=== PATIENT | male | born 1960 | race Caucasian/White ===

== ENCOUNTER → 2020-08-20 16:11 | Outpatient (BNVA) | payer OTHER, SELFPAY | PROVIDERS: PCP Internal Medicine; Visit Provider Urology | DX: Z76.89 Persons encountering health services in other specified circumstances (principal) ==

== ENCOUNTER → 2021-09-03 09:17 | Outpatient (BNVA) | payer OTHER, SELFPAY | PROVIDERS: PCP Physician Assistant Medical; Visit Provider Urology | DX: N40.1 Benign prostatic hyperplasia with lower urinary tract symptoms (principal); N13.8 Other obstructive and reflux uropathy; N52.9 Male erectile dysfunction, unspecified | CPT/HCPCS: 51798; 99212 ==

== ENCOUNTER 2022-09-03 10:26 | Outpatient (REF) | payer OTHER, SELFPAY ==
[2022-09-03 16:40] LABS: Urine Cytology See Pathology rpt
== END 2022-09-03 10:27 | disposition home or self-care (01) ==
LOC: HO.LAB 10:26
PROVIDERS: PCP Physician Assistant Medical; Visit Provider Urology
DX: R31.29 Other microscopic hematuria (principal); N52.9 Male erectile dysfunction, unspecified; N40.1 Benign prostatic hyperplasia with lower urinary tract symptoms; N13.8 Other obstructive and reflux uropathy
CPT/HCPCS: 88112; 99212

== ENCOUNTER → 2022-12-02 09:16 | Outpatient (BNVA) | payer OTHER, SELFPAY | PROVIDERS: PCP Physician Assistant Medical; Visit Provider Urology ==

== ENCOUNTER → 2023-06-10 10:27 | Outpatient (BNVA) | payer OTHER, SELFPAY | PROVIDERS: Visit Provider Urology ==

== ENCOUNTER 2024-01-12 08:31 | Outpatient (AMB) | payer OTHER, SELFPAY ==
--- NOTE | 2024-01-12 08:37 | A.OFFVIS_ITS ---
Intake Visit Reasons: Follow up/PVR Intake Note: Patient is Present for PVR/ Urology Med: Patient is no longer taking Tamsulosin, Tadalafil Antibiotic Allergy:None Blood Thinner: None Todays PVR:20 Allergies No Known Allergies Allergy (Verified 01/12/24 08:40) Medication List - Last Reconciled 01/12/24 by Dante Logan MD allopurinol 100 mg PO DAILY celecoxib (Celebrex) 200 mg PO DAILY clonazepam 0.5 mg PO DAILY clonazepam 0 mg PO esomeprazole magnesium (Nexium) 20 mg PO DAILY lisinopril 30 mg PO DAILY metformin 500 mg PO QAM pantoprazole 40 mg PO DAILY rosuvastatin 20 mg PO DAILY sennosides (senna) 17.2 mg PO BID tadalafil 20 mg PO ONCE PRN 30 days tadalafil 5 mg PO DAILY 90 days tamsulosin 0.4 mg PO BEDTIME 90 days HPI Comments Details: Mr Gillespie is a very pleasant male. He is a patient of Dr. Crowley. He is seen for following urologic conditions - lower urinary tract symptoms - erectile dysfunction Has progression of lower urinary tract symptoms Low PSA Starting alfuzosin Add back daily tadalafil with on demand tadalafil Plan bladder ultrasound and check cystoscopy late April Is going to [facility] for a few months As a place near [place] Lower Urinary Tract Symptoms: Current visit is for further evaluation of, lower urinary tract symptoms, predominate obstructive symptoms Current treatment includes medication, - daily tadalafil Prostate Symptom Score Mild (0-8), Bother 3. Symptoms include 01/08 incomplete emptying, weak stream, straining, and are progressing 08/11 , weak stream, nocturia (>2), and are stable 08/12 , incomplete emptying, weak stream Prior Prostate Score moderate. PSA 07/09 0.7, 07/11 0.8. 07/15 0.8 Prostate volume 30-50gm Testing at next visit will include uroflow, bladder scan. Treatment plan continue with current medications. Erectile dysfunction: In setting of diabetes Progressive Diabetic with statin management Responds to oral medications Daily tadalafil with on demand medication prescription provided [facility] Medical History Gout Hyperlipidemia HTN (hypertension) Chronic pain syndrome Anxiety Obesity Benign prostatic hyperplasia without lower urinary tract symptoms Erectile dysfunction due to arterial insufficiency Excessive urination at night Other microscopic hematuria Erectile dysfunction Surgical History History of total right knee replacement History of colonoscopy Review of Systems Const Denies chills and Denies fever(s) Card Reports no additional complaints and Denies syncope Resp Denies cough GI Denies abdominal pain and Denies heartburn Reports as per HPI and Denies change in libido Neuro Denies syncope Psych Denies change in libido Endo Denies change in libido Physical Exam Const General: cooperative, healthy appearing, comfortable and no acute distress Orientation/consciousness: patient oriented x3 HEENT Face and sinus: Yes normal facial exam Mouth: moist mucous membranes Neck Neck: Yes normal visual inspection, Yes full ROM and Yes trachea midline Chest Chest palpation & inspection: normal inspection of the chest Resp Effort & Inspection: normal respiratory effort, able to speak in complete sentences and no respiratory distress GI Inspection: Yes normal to inspection Back/Spine/Pelvis Cervical Spine: normal cervical lordosis Thoracic/Lumbar Spine: thoracic and lumbar spine normal to inspection Skin General skin exam: no rashes or lesions noted Neuro General: patient oriented x3, gait normal, tone normal and moves all extremities Extrem General: Yes normal to inspection and Yes capillary refill normal Office Procedures Post Void Residual Post Residual Void Post Void Residual (PVR): 20 [id number] Void Residual by ultrasound Assessment & Plan Assessment & Plan (1) Erectile dysfunction associated with type 2 diabetes mellitus: Code(s): E11.69 - Type 2 diabetes mellitus with other specified complication; N52.1 - Erectile dysfunction due to diseases classified elsewhere Category: Medical Plan Four month follow-up bladder ultrasound cystoscopy Orders: Orders AMB Post Void Residual by ultrasound Today N13.8 - Other obstructive and reflux uropathy, N40.1 - Benign prostatic hyperplasia with lower urinary tract symptoms US bladder 4 Months N13.8 - Other obstructive and reflux uropathy, N40.1 - Benign prostatic hyperplasia with lower urinary tract symptoms, R39.12 - Poor urinary stream Patient Instructions: Imaging studies, laboratory and physical exam results were discussed and reviewed in detail. No major barriers to patient understanding were identified. An opportunity to ask questions regarding the treatment plan was provided. All questions were answered. The patient expressed understanding and agreement with the above treatment plan. The patient is aware they should contact our office by phone for worsening of their current condition or the appearance of new urologic symptoms. Compliance is encouraged with any medications and followup testing that is ordered. It is a privilege to participate in the urologic care of your patient. If you have any questions or concerns regarding treatment for the above conditions, or other urologic issues, please do not hesitate to contact me. The office telephone contact is [phone]. This note is constructed using voice recognition software. While every effort has been made to ensure accuracy roll forming supervisor errors may have been included. Yours sincerely, Dr Dante Logan MD, ESPERANZA [facility] - Urology Providers of Expert, Compassionate Care for the Genitourinary System Coding Level of Care Code Est Pt Level 4 (79892) Diagnoses Erectile dysfunction associated with type 2 diabetes mellitus E11.69; N52.1 CPT Codes Post Residual Void - PVR CPT Code: 09673-Lyza Void Residual by ultrasound ([id number])
== END 2024-01-12 09:24 | disposition home or self-care (01) ==
PROVIDERS: PCP Physician Assistant Medical; Visit Provider Urology
DX: E11.69 Type 2 diabetes mellitus with other specified complication (principal); N52.1 Erectile dysfunction due to diseases classified elsewhere
CPT/HCPCS: 99214

== ENCOUNTER → 2024-01-12 08:31 | Outpatient (BNVA) | payer OTHER, SELFPAY | PROVIDERS: PCP Physician Assistant Medical; Visit Provider Urology | DX: E11.69 Type 2 diabetes mellitus with other specified complication (principal); N52.1 Erectile dysfunction due to diseases classified elsewhere | CPT/HCPCS: 51798; 99212 ==

== ENCOUNTER 2024-05-14 10:37 | Outpatient (REF) | payer OTHER, SELFPAY | END 2024-05-14 10:38 | disposition home or self-care (01) | LOC: HO.US 10:37 | PROVIDERS: PCP Physician Assistant Medical; Visit Provider Urology | DX: R39.12 Poor urinary stream (principal); N40.1 Benign prostatic hyperplasia with lower urinary tract symptoms; N13.8 Other obstructive and reflux uropathy | CPT/HCPCS: 76857 ==

== ENCOUNTER 2024-05-18 13:50 | Outpatient (REF) | payer OTHER, SELFPAY ==
[2024-05-18 16:35] LABS: Urine Cytology See Pathology rpt
== END 2024-05-18 13:51 | disposition home or self-care (01) ==
LOC: HO.LAB 13:50
PROVIDERS: PCP Physician Assistant Medical; Visit Provider Urology
DX: R31.29 Other microscopic hematuria (principal); N40.1 Benign prostatic hyperplasia with lower urinary tract symptoms; N13.8 Other obstructive and reflux uropathy; N52.1 Erectile dysfunction due to diseases classified elsewhere; E11.69 Type 2 diabetes mellitus with other specified complication; R33.9 Retention of urine, unspecified; Z79.899 Other long term (current) drug therapy
CPT/HCPCS: 52000; 81003; 88112; 99212

== ENCOUNTER 2024-05-18 13:50 | Outpatient (AMB) | payer OTHER, SELFPAY ==
--- NOTE | 2024-05-18 13:54 | MHC.OFFVIS ---
Intake Visit Reasons: Cystoscopy/Bladder US(05/14) Intake Note: Patient is present for Cystoscopy/Bladder US Follow up Urology Med: Tadalafil, Tamsulosin Antibiotic Allergy: None Blood Thinner: None URO G Cystoscope cannula LOT: [id number] EXP:08/25/2026 Automobile Mechanic Supervisor Required: No Accompanied by: Self / Same As Patient Allergies No Known Allergies Allergy (Verified 05/18/24 13:55) HPI Comments Details: Mr Gillespie is a very pleasant male. He is a patient of Dr. Crowley. He is seen for following urologic conditions - lower urinary tract symptoms - erectile dysfunction Check cystoscopy Has been on combination alfuzosin with daily tadalafil Moderate sized prostate 75 gm prostate on US Plan for green light laser Has placed in [facility] As a place near [place] Lower Urinary Tract Symptoms: Current visit is for further evaluation of, lower urinary tract symptoms, predominate obstructive symptoms Current treatment includes medication, - daily tadalafil with alfuzosin Prostate Symptom Score Mild (0-8), Bother 3. Symptoms include 01/08 incomplete emptying, weak stream, straining, and are progressing 08/11 , weak stream, nocturia (>2), and are stable 08/12 , incomplete emptying, weak stream Prior Prostate Score moderate. PSA 07/09 0.7, 07/11 0.8. 07/15 0.8 Imaging - 05/17 bladder ultrasound 75 g prostate Treatment plan continue with current medications. Erectile dysfunction: In setting of diabetes Progressive Diabetic with statin management Responds to oral medications Daily tadalafil with on demand medication prescription provided [facility] Medical History Gout Hyperlipidemia HTN (hypertension) Chronic pain syndrome Anxiety Obesity Benign prostatic hyperplasia without lower urinary tract symptoms Erectile dysfunction due to arterial insufficiency Excessive urination at night Other microscopic hematuria Erectile dysfunction Surgical History History of total right knee replacement History of colonoscopy Review of Systems Const Denies chills and Denies fever(s) Card Reports no additional complaints and Denies syncope Resp Denies cough GI Denies abdominal pain and Denies heartburn Reports as per HPI and Denies change in libido Neuro Denies syncope Psych Denies change in libido Endo Denies change in libido Physical Exam Const General: cooperative, healthy appearing, comfortable and no acute distress Orientation/consciousness: patient oriented x3 HEENT Face and sinus: Yes normal facial exam Mouth: moist mucous membranes Neck Neck: Yes normal visual inspection, Yes full ROM and Yes trachea midline Chest Chest palpation & inspection: normal inspection of the chest Resp Effort & Inspection: normal respiratory effort, able to speak in complete sentences and no respiratory distress GI Inspection: Yes normal to inspection Back/Spine/Pelvis Cervical Spine: normal cervical lordosis Thoracic/Lumbar Spine: thoracic and lumbar spine normal to inspection Skin General skin exam: no rashes or lesions noted Neuro General: patient oriented x3, gait normal, tone normal and moves all extremities Extrem General: Yes normal to inspection and Yes capillary refill normal Office Procedures Cystoscopy Consent Discussed risk and benefit or proposed procedure with the patient. Information consent for procedure given to the patient. Discussed technical aspects, risks, benefits and alternatives in full. Addressed all of the patient's questions and concerns regarding the procedure. The patient demonstrated knowledge and understanding. They wish to proceed with this procedure. Preparation The patient was prepped in the usual manner. A truck rental service attendant was present and in the room. Genitalia was prepped with betadine solution in a sterile manner. Lidocaine Jelly 2% was placed into the urethra and 16Fr flexible Olympus cystoscope was inserted into the meatus after adequate lubrication. Procedure Cystoscopy performed using a disposable Urovue digital 16 Moldovan cystoscope. Meatus normal position Urethra anterior and posterior normal Prostatic Urethra trilobar hyperplasia Bladder examination with retroflexion of cystoscope Bladder Orifices normal shape and position Bladder Capacity median Trabeculations grade 1 Cellule Formation no Diverticulum Formation none Mucosal Erythema = Bladder Tumor - [id number]-[id number] DISPOSABLE SCOPE URO-G FLEXIBLE SCOPE Procedure code (CPT) selection complete Office Meds lidocaine HCl 2 % mucosal jelly in applicator Performing Provider: Dante Logan MD Performing Location: [facility] Administered by: Anthony Bryson LPN on 05/18/24 14:16 Dose Route Admin Location Dispensed Lot Number Expiration Date [facility] [employer] Rep[employer] 10 mL intra-urethral 10 mL nitrofurantoin monohydrate/macrocrystals 100 mg capsule Performing Provider: Dante Logan MD Performing Location: [facility] Administered by: Anthony Bryson LPN on 05/18/24 14:16 Dose Route Admin Location Dispensed Lot Number Expiration Date NDC [employer] 100 mg PO 1 cap naproxen 500 mg tablet Performing Provider: Dante Logan MD [facility] Administered by: Anthony Bryson LPN on 05/18/24 14:16 Dose Route Admin Location Dispensed Lot Number Expiration Date NDC [employer] 500 mg PO 1 tab Results AMB Urinalysis, Automated UA Leukoctes 0 Leno/uL Last Edit by Krysta Elam [facility] on 05/18/24 14:18 UA Nitrite Negative Last Edit by Krysta Elam, A on 05/18/24 14:18 UA Urobilinogen 0.2 mg/dL Last Edit by Krysta Elam A on 05/18/24 14:18 UA Protein 15 mg/dL Last Edit by Krysta Elam A on 05/18/24 14:18 UA pH 6.0 Last Edit by Krysta Elam A on 05/18/24 14:18 UA Blood 200 Daniel/uL Last Edit by Krysta Elam A on 05/18/24 14:18 UA Specific Deal 1.025 Last Edit by Krysta Elam A on 05/18/24 14:18 UA Ketone Negative Last Edit by Krysta Elam [facility] on 05/18/24 14:18 UA Bilirubin 0 mg/dL Last Edit by Krysta Elam A on 05/18/24 14:18 UA Glucose 0 mg/dL Last Edit by Krysta Elam A on 05/18/24 14:18 Results Reviewed Results Reviewed: Laboratory Last Values Urine pH (Auto) 6.0 05/18/24 13:55 Specific Deal (Auto) 1.025 05/18/24 13:55 Urine Protein (Auto) 15 mg/dL 05/18/24 13:55 Glucose (UA)(Auto) 0 mg/dL 05/18/24 13:55 Urine Ketones (Auto) Negative 05/18/24 13:55 Urine Blood (Auto) 200 Daniel/uL 05/18/24 13:55 Urine Nitrite (Auto) Negative 05/18/24 13:55 Urine Bilirubin (Auto) 0 mg/dL 05/18/24 13:55 Urine Urobilinogen (Auto) 0.2 mg/dL 05/18/24 13:55 Leukocyte Esterase (Auto) 0 Leno/uL 05/18/24 13:55 Assessment & Plan Assessment & Plan (1) BPH w urinary obs/LUTS: Code(s): N40.1 - Benign prostatic hyperplasia with lower urinary tract symptoms; N13.8 - Other obstructive and reflux uropathy Category: Medical (2) Erectile dysfunction associated with type 2 diabetes mellitus: Code(s): E11.69 - Type 2 diabetes mellitus with other specified complication; N52.1 - Erectile dysfunction due to diseases classified elsewhere Category: Medical Plan We discussed the nature of the decision and reasonable options for performing a prostate intervention. Interventions include TURP, GreenLight laser enucleation of the prostate, GreenLight laser ablation of the prostate, transurethral incision of the prostate, and I-Tend prostate procedure. Options such as medical therapy were discussed. The relative uncertainties and benefits related to each alternate procedure were adequately discussed. General surgical risks including, but not limited to, pain, bleeding, infection, myocardial infarction, pulmonary embolus, deep vein thrombosis and cerebrovascular accident which may result in further hospitalization were discussed. Full disclosure of the procedure as well as all major risks, benefits and complications were discussed including but not limited to damage to the urethra or bladder neck, recurrent BPH, retrograde ejaculation, bladder infection, urge, de jamaal frequency, incomplete emptying, dysuria, remote chance of erectile dysfunction, epididymitis, and meatal stenosis. The success rate of the procedure was discussed. Success of the procedure in the short-term does not necessarily guarantee that long-term success will be maintained. Suitable follow up will need to be maintained. The patient showed understanding of discussion. An opportunity was provided for questions to be answered and wishes to proceed with the following procedure. - GreenLight laser Orders: Orders AMB Urinalysis Automated 05/18/24 Z13.9 - Encounter for screening, unspecified AMB Cystoscopy 05/18/24 N13.8 - Other obstructive and reflux uropathy, N40.1 - Benign prostatic hyperplasia with lower urinary tract symptoms Urine Cytology 05/18/24 R31.29 - Other microscopic hematuria Medications: New finasteride 5 mg PO DAILY 90 tabs 1RF 90 days N13.8 - Other obstructive and reflux uropathy, N40.1 - Benign prostatic hyperplasia with lower urinary tract symptoms, R33.9 - Retention of urine, unspecified Patient Instructions: Imaging studies, laboratory and physical exam results were discussed and reviewed in detail. No major barriers to patient understanding were identified. An opportunity to ask questions regarding the treatment plan was provided. All questions were answered. The patient expressed understanding and agreement with the above treatment plan. The patient is aware they should contact our office by phone for worsening of their current condition or the appearance of new urologic symptoms. Compliance is encouraged with any medications and followup testing that is ordered. It is a privilege to participate in the urologic care of your patient. If you have any questions or concerns regarding treatment for the above conditions, or other urologic issues, please do not hesitate to contact me. The office telephone contact is [phone]. This note is constructed using voice recognition software. While every effort has been made to ensure accuracy warping machine operator errors may have been included. Yours sincerely, Dr Dante Logan MD, ESPERANZA [facility] - Urology Providers of Expert, Compassionate Care for the Genitourinary System Coding Level of Care Code Est Pt Level 4 (96886) Diagnoses BPH w urinary obs/LUTS N40.1; N13.8 Erectile dysfunction associated with type 2 diabetes mellitus E11.69; N52.1 CPT Codes Cystoscopy - CPT: 73569-[id number] ([id number])
== END 2024-05-18 14:47 | disposition home or self-care (01) ==
PROVIDERS: PCP Physician Assistant Medical; Visit Provider Urology
DX: N40.1 Benign prostatic hyperplasia with lower urinary tract symptoms (principal); N13.8 Other obstructive and reflux uropathy; Z13.9 Encounter for screening, unspecified
CPT/HCPCS: 52000; 99214

== ENCOUNTER 2024-05-21 09:40 | Outpatient (REF) | payer OTHER, SELFPAY ==
[2024-05-22 11:22] LABS: Appearance Urine Turbid; Color Urine Orange; Glucose Urine UA Negative (Negative); Leukocyte Esterase Urine Moderate (2+) (Negative); Nitrite Urine Positive (Negative); Specific Gravity - Urine 1.025 (1.005-1.025); UMIC TRIGGER UA YES; Urine Blood Large (3+) (Negative); Urine Ketones Negative (Negative); Urine Protein 300 (3+) mg/dL (Neg-Trace)
[2024-05-22 11:32] LABS: Bacteria Urine 4+ (None Seen); Hyaline Casts Urine 0-2 /LPF (0-2); Other Crystals Urine Present; RBC Urine >20 /HPF (0-2); WBC Urine >50 /HPF (0-5)
== END 2024-05-21 09:41 | disposition home or self-care (01) ==
LOC: HO.LNP 09:40
PROVIDERS: Visit Provider Urology
DX: N40.1 Benign prostatic hyperplasia with lower urinary tract symptoms (principal); N13.8 Other obstructive and reflux uropathy
CPT/HCPCS: 81001; 87086; 87088; 87186

== ENCOUNTER 2024-05-22 09:24 | Outpatient (REF) | payer OTHER, SELFPAY | END 2024-05-22 09:25 | disposition home or self-care (01) | LOC: HO.LAB 09:24 | PROVIDERS: PCP Physician Assistant Medical; Visit Provider Urology | DX: Z13.89 Encounter for screening for other disorder (principal) ==

== ENCOUNTER 2024-06-07 11:09 | Outpatient (AMB) | payer OTHER, SELFPAY ==
--- NOTE | 2024-06-07 12:53 | A.OFFVIS_ITS ---
Intake Visit Reasons: Questions on Greenlight procedure Intake Note: Patient is present for QUESTIONS ON GREENLIGHT PROCEDURE Urology Medication:TADALAFIL,BACTRIM,TAMSULSOIN,FINASTERIDE Antibiotic Allergy:NONE Blood Thinner:NONE Nurse Midwife/Clinical Instructor Required: No Allergies No Known Allergies Allergy (Verified 06/07/24 12:56) HPI Comments Details: Mr Gillespie is a very pleasant male. He is a patient of Dr. Crowley. He is seen for following urologic conditions - lower urinary tract symptoms - erectile dysfunction Telemedicine Evaluation 15 min Consultation Digital Lab Lenny Video Questions answered regarding green light laser Check cystoscopy Has been on combination alfuzosin with daily tadalafil Moderate sized prostate 75 gm prostate on US Plan for green light laser Has placed in [facility] As a place near [place] Lower Urinary Tract Symptoms: Current visit is for further evaluation of, lower urinary tract symptoms, predominate obstructive symptoms Current treatment includes medication, - daily tadalafil with alfuzosin Prostate Symptom Score Mild (0-8), Bother 3. Symptoms include 01/08 incomplete emptying, weak stream, straining, and are progressing 08/11 , weak stream, nocturia (>2), and are stable 08/12 , incomplete emptying, weak stream Prior Prostate Score moderate. PSA 07/09 0.7, 07/11 0.8. 07/15 0.8 Imaging - 05/17 bladder ultrasound 75 g prostate Treatment plan continue with current medications. Erectile dysfunction: In setting of diabetes Progressive Diabetic with statin management Responds to oral medications Daily tadalafil with on demand medication prescription provided [facility] Medical History Gout Hyperlipidemia HTN (hypertension) Chronic pain syndrome Anxiety Obesity Benign prostatic hyperplasia without lower urinary tract symptoms Erectile dysfunction due to arterial insufficiency Excessive urination at night Other microscopic hematuria Erectile dysfunction Surgical History History of total right knee replacement History of colonoscopy Review of Systems Const All systems reviewed & are unremarkable except as noted in HPI and below Reports no additional complaints Resp Reports no additional complaints GI Reports no additional complaints Reports as per HPI Musc Reports no additional complaints Physical Exam Telemedicine evaluation Appropriate responses Regular breathing rate and rhythm HEENT Head: Yes normal to inspection Ears: hearing grossly normal bilaterally Eyes General: appearance normal, both eyes and all related structures Neck Neck: Yes normal visual inspection Chest Chest palpation & inspection: normal inspection of the chest Resp Effort & Inspection: normal respiratory effort and able to speak in complete sentences Telehealth Telehealth Telehealth Platform: Digital Lab Location of provider rendering services: practice address Location of patient: address on file Patient Identification confirmed using: Name, : Yes Telehealth method: video Patient verbally consented to treatment: Yes Patient verbally consented to billing insurance company: Yes Patient informed of any privacy concerns related to visit: Yes Minutes spent on Phone/Video with Pt.: 15 Assessment & Plan Assessment & Plan (1) Erectile dysfunction associated with type 2 diabetes mellitus: Code(s): E11.69 - Type 2 diabetes mellitus with other specified complication; N52.1 - Erectile dysfunction due to diseases classified elsewhere Category: Medical (2) BPH w urinary obs/LUTS: Code(s): N40.1 - Benign prostatic hyperplasia with lower urinary tract symptoms; N13.8 - Other obstructive and reflux uropathy Category: Medical Plan We discussed the nature of the decision and reasonable options for performing a prostate intervention. Interventions include TURP, GreenLight laser enucleation of the prostate, GreenLight laser ablation of the prostate, transurethral incision of the prosta te, and I-Tend prostate procedure. Options such as medical therapy were discussed. The relative uncertainties and benefits related to each alternate procedure were adequately discussed. General surgical risks including, but not limited to, pain, bleeding, infection, myocardial infarction, pulmonary embolus, deep vein thrombosis and cerebrovascular accident which may result in further hospitaliza tion were discussed. Full disclosure of the procedure as well as all major risks, benefits and complications were discussed including but not limited to damage to the urethra or bladder neck, recurrent BPH, retrograde ejaculation, bladder infection, urge, de jamaal frequency, incomplete emptying, dysuria, remote chance of erectile dysfunction, epididymitis, and meatal stenosis. The success rate of the procedure was discussed. Success of the procedure in the short-term does not necessarily guarantee that long-term success will be maintained. Suitable follow up will need to be maintained. The patient showed understanding of discussion. An opportunity was provided for questions to be answered and wishes to proceed with the following procedure. - Greenlight laser Patient Instructions: Imaging studies, laboratory and physical exam results were discussed and reviewed in detail. No major barriers to patient understanding were identified. An opportunity to ask questions regarding the treatment plan was provided. All questions were answered. The patient expressed understanding and agreement with the above treatment plan. The patient is aware they should contact our office by phone for worsening of their current condition or the appearance of new urologic symptoms. Compliance is encouraged with any medications and followup testing that is ordered. It is a privilege to participate in the urologic care of your patient. If you have any questions or concerns regarding treatment for the above conditions, or other urologic issues, please do not hesitate to contact me. The office telephone contact is [phone]. This note is constructed using voice recognition software. While every effort has been made to ensure accuracy geospatial program management officer errors may have been included. Yours sincerely, Dr Dante Logan MD, ESPERANZA [facility] - Urology Providers of Expert, Compassionate Care for the Genitourinary System Coding Level of Care Code Tele Est Pt Level 3 (61202) Diagnoses Erectile dysfunction associated with type 2 diabetes mellitus E11.69; N52.1 BPH w urinary obs/LUTS N40.1; N13.8
== END 2024-06-07 14:10 | disposition home or self-care (01) ==
LOC: HO.HUSH 11:09
PROVIDERS: PCP Physician Assistant Medical; Visit Provider Urology
DX: E11.69 Type 2 diabetes mellitus with other specified complication (principal); N52.1 Erectile dysfunction due to diseases classified elsewhere; N40.1 Benign prostatic hyperplasia with lower urinary tract symptoms; N13.8 Other obstructive and reflux uropathy
CPT/HCPCS: 99213

== ENCOUNTER 2024-06-25 09:15 | Day surgery (SDC) | payer OTHER, SELFPAY ==
--- NOTE | 2024-06-20 11:38 | HO.ANESPROP2 ---
Documented by User: Monika Baird NP 06/20/24 11:40 HPI - Anesthesia Eval Consult details Narrative: 63yo M for Laser Ablation Prostate w/Green Light Anesthesia Pre-Procedure Meds Is the patient on any of the following meds?: GLP1/DPP4 PMFSH Active Problems Active Problems: All Active Problems Erectile dysfunction associated with type 2 diabetes mellitus (Acute) BPH w urinary obs/LUTS (Acute) Erectile dysfunction (Acute) Past Medical History Medical History (Updated 06/25/24 @ 09:36 by Christina Carney RN) Sleep apnea Borderline diabetes Gout Hyperlipidemia HTN (hypertension) Chronic pain syndrome Anxiety Obesity Benign prostatic hyperplasia without lower urinary tract symptoms Erectile dysfunction due to arterial insufficiency Excessive urination at night Other microscopic hematuria Erectile dysfunction Surgical History Surgical History History of total right knee replacement History of colonoscopy Social History Social History Patient Tobacco Use Status: Former Tobacco user Tobacco use type: Cigarette Use of substances other than those prescribed or required for medical reasons: No Are you DNR?: No Advance Directives: No Advance Directives Information Provided: Yes Meds Allergies Allergy/AdvReac Type Severity Reaction Status Date / Time No Known Allergies Allergy Verified 06/25/24 09:36 Home Medications ?Medication ?Instructions ?Recorded ?Confirmed ?Last Taken ?Type allopurinol 100 mg tablet 100 mg PO DAILY 08/20/20 06/25/24 Unknown History celecoxib 200 mg capsule (Celebrex) 200 mg PO DAILY 08/20/20 06/25/24 06/16/24 History clonazepam 0.5 mg disintegrating 0.5 mg PO DAILY 08/20/20 06/25/24 06/25/24 07:00 History tablet esomeprazole magnesium 20 mg 20 mg PO DAILY 08/20/20 06/25/24 06/25/24 07:00 History capsule,delayed release (Nexium) lisinopril 30 mg tablet 30 mg PO DAILY 09/03/22 06/25/24 06/25/24 07:00 History pantoprazole 40 mg tablet,delayed 40 mg PO DAILY 09/03/22 06/25/24 06/25/24 07:00 History release rosuvastatin 20 mg tablet 20 mg PO DAILY 09/03/22 06/25/24 Unknown History sennosides 8.6 mg tablet (senna) 17.2 mg PO BID 09/03/22 06/25/24 Unknown History lidocaine HCl 2 % mucosal jelly in 1 appl topical DAILY PRN 05/18/24 06/25/24 Unknown History applicator Hemorrhoids tirzepatide 5 mg/0.5 mL 5 mg subcut QWEEK 05/18/24 06/25/24 06/16/24 History subcutaneous pen injector (Mounjaro) Assessment and Plan Assessment Anesthesia Assessment: Chart Reviewed Documented by User: Rica Zhang MD 06/25/24 10:42 [facility] Past Medical History Medical History (Updated 06/25/24 @ 09:36 by Christina Carney RN) Sleep apnea Borderline diabetes Gout Hyperlipidemia HTN (hypertension) Chronic pain syndrome Anxiety Obesity Benign prostatic hyperplasia without lower urinary tract symptoms Erectile dysfunction due to arterial insufficiency Excessive urination at night Other microscopic hematuria Erectile dysfunction Family History Family history of problems with anesthesia: No Surgical History Surgical History History of total right knee replacement History of colonoscopy History of Problems with Anesthesia: No Social History Social History Patient Tobacco Use Status: Former Tobacco user Tobacco use type: Cigarette Use of substances other than those prescribed or required for medical reasons: No Are you DNR?: No Advance Directives: No Advance Directives Information Provided: Yes Meds Allergies Allergy/AdvReac Type Severity Reaction Status Date / Time No Known Allergies Allergy Verified 06/25/24 09:36 Home Medications ?Medication ?Instructions ?Recorded ?Confirmed ?Last Taken ?Type allopurinol 100 mg tablet 100 mg PO DAILY 08/20/20 06/25/24 Unknown History celecoxib 200 mg capsule (Celebrex) 200 mg PO DAILY 08/20/20 06/25/24 06/16/24 History clonazepam 0.5 mg disintegrating 0.5 mg PO DAILY 08/20/20 06/25/24 06/25/24 07:00 History tablet esomeprazole magnesium 20 mg 20 mg PO DAILY 08/20/20 06/25/24 06/25/24 07:00 History capsule,delayed release (Nexium) lisinopril 30 mg tablet 30 mg PO DAILY 09/03/22 06/25/24 06/25/24 07:00 History pantoprazole 40 mg tablet,delayed 40 mg PO DAILY 09/03/22 06/25/24 06/25/24 07:00 History release rosuvastatin 20 mg tablet 20 mg PO DAILY 09/03/22 06/25/24 Unknown History sennosides 8.6 mg tablet (senna) 17.2 mg PO BID 09/03/22 06/25/24 Unknown History lidocaine HCl 2 % mucosal jelly in 1 appl topical DAILY PRN 05/18/24 06/25/24 Unknown History applicator Hemorrhoids tirzepatide 5 mg/0.5 mL 5 mg subcut QWEEK 05/18/24 06/25/24 06/16/24 History subcutaneous pen injector (Luxunalvaro) Exam Airway Mallampati Class: II (one cap laterally on bottom) TM Dist: >3cm Neck ROM: Full Heart: rrr Lungs: cta Assessment and Plan Assessment Anesthesia Assessment: Anesthesia Plan Discussed Final Anesthetic Review Family History of Problems with Anesthesia: No History of Problems with Anesthesia: No NPO: Yes ASA Class: III Final Preanesthetic Review: No Changes in Pt Med Stat, Meds/Allgs Chart Reviewed and Consent Obtained/Reviewed Patient Risk: Intermediate Procedure Risk: Low Anesthetic Plan Anesthetic Plan: GA Disposition: Standard PACU
[2024-06-25] VITALS (7 sets, daily range): BP systolic 121–135; BP diastolic 73–81; PULSE 68–85; RESP 12–17; TEMP 36.3–36.7; O2SAT 89–95; BMI 35.3
[2024-06-25] MEDS: Lactated Ringers 1,000 ML 100 ML IVCONT (10:05)
[2024-06-25 10:12] LABS: Glucose, Whole Blood 103 mg/dL (60-115)
--- NOTE | 2024-06-25 10:38 | MHC.SHP ---
Pre-Procedural Eval Section A - 24 Hr Update-Section A only Date of Service: 06/25/24 The patient is an INPATIENT: No Changes since office visit: No Cold of Flu in the past 2 weeks, No New Medical Problems, No Changes in Medication and No Patient answered all questions The patient has been examined within 24 hours of the surgical procedure. The History & Physical has been completed within 30 days and I have reviewed it.: Yes Section B - Complete if H&P > 30 days Chief Complaint: Benign prostatic hyperplasia with lower urinary Allergies: Allergies Allergy/AdvReac Type Severity Reaction Status Date / Time No Known Allergies Allergy Verified 06/25/24 09:36 Review of Systems Sugical H&P ROS: Negative: Constitution, Cardiovascular, Respiratory, Neurological, Psychiatric, Hem-Onc, Allergic/Immunologic, Gastrointestinal, Genitourinary, Musculoskeletal, Integumentary, Endocrine and Eyes/Ears/Nose/Throat Exam Surgical H&P Exam: Normal: HEENT, Normal: Heart, Normal: Lungs, Normal: Extremities, Normal: Abdomen, Normal: Skin and Normal: Neurological Plan Diagnosis/Plan: Unchanged (green light laser prostatectomy) I have reviewed the history and physical and performed a pertinent physical examination on my patient. No changes have occurred unless specified. Time Spent With Patient Time: Total time managing care of this patient today ____ minutes.
--- NOTE | 2024-06-25 11:50 | W.PM.OPN ---
Operative Note Operative Note Date of Service: 06/25/24 Narrative: PreOperative Diagnosis: Bladder outlet obstruction Post Operative Diagnosis: Bladder outlet obstruction Procedure: GreenLight Laser Enucleation of the prostate CPT 17623 Surgeon: Dr Dante Logan Anesthesia: General History of bladder outlet obstruction. Treated with alpha-cornel and other medications. Still with symptoms. On cystoscopy in office has trilobar hypertrophy. Recommendation for prostate procedure with laser enucleation of prostate. Risks and benefits have been discussed. Focus was placed on development of retrograde ejaculation which is a normal part of this procedure. Procedure: After informed consent was verified the patient was brought to the operating room and placed in a supine position. Anesthesia was administered per protocol. Patient was placed in modified dorsal lithotomy position and prepped and draped in a sterile fashion. Safety pause time-out was confirmed. Antibiotics have been given. A Twenty-four Vietnamese laser cystoscope was inserted per urethra. No abnormalities were found of the anterior and bulbar urethra. The prostatic urethra shows trilobar hypertrophy. The bladder was examined and both ureteric orifices were seen in their normal positions away from the area of interest. Bladder trabeculation Grade 1. Using a GreenLight laser with settings of 80 cavazos incisions were made at the 5 and 7 o'clock position. The incisions were taken down from the bladder neck down to the level of the veru. These were gradually deepened in order to define the lateral aspects of the median lobe area. Once clearly defined they will also extended in the lateral directions in order to create a deep groove. The median lobe was then ablated and enucleated tissue released into the bladder with the laser power increased to 120 W. Once the median lobe area had been cleared attention was directed to the lateral lobes. Starting with the patient's left lateral lobe. First the 05:00 o'clock groove was further developed. This was moved in the lateral direction to undermine the tissue on the lateral side running from the bladder neck to the prostate apex. The ureteric orifice was used to guide incisions. Focus was then placed on the laser at the 1 o'clock position to developing a secondary groove down to the level of bladder fibers. The creation of a second deep groove defined a segment of intervening tissue similar to a slice of orange. At the apex of the prostate the 2 grooves were linked the us releasing the intervening tissue. This tissue was then removed with a combination of enucleation and ablation working from the apex toward the bladder neck. A similar procedure was repeated on the patient's right-hand side. The only differences being the position of the lateral groove at he 7 o'clock position and the secondary groove at the 11 o'clock position, Otherwise the procedure was developed in a mirror fashion. After the majority of tissue had been debulked remnant tissue was ablated with the side fire laser and the curve of the prostate followed up each side wall clearly defining the anterior remnant strip that remained between the 11 and 1 o'clock positions. In this case the anterior tissue protruded into the prostatic fossa and was partially ablated with the laser When this was had been completed debris and pieces of prostate were removed from the bladder with irrigation. Both ureteric orifices were reviewed again in shown to be patent in away from any areas of energy damage. The apical area was reviewed in any stray ooze was controlled. A 22 Vietnamese 30 cc balloon Katz catheter was placed over a stylet into the bladder. Clear efflux was obtained upon irrigation with a Ernestine piston syringe. 30 cc was placed in the balloon and gentle traction was placed. A snap was used to hold tension on the catheter to control bleeding during patient moved and transported. A drainage bag was placed. Once transportation is complete to the PACU the snap will be removed. The patient tolerated the procedure well, he was extubated in the operating and transferred in a stable condition to the recovery area. Total Power 115 kW Lasing time 17:50 Pathology: Prostate tissue Drains: Katz catheter
== END 2024-06-25 13:00 | disposition home or self-care (01) ==
PROVIDERS: PCP Physician Assistant Medical; Visit Provider Urology
PROC: (CPT 52648; principal; 2024-06-25 10:50)
DX: N40.1 Benign prostatic hyperplasia with lower urinary tract symptoms (principal); N13.8 Other obstructive and reflux uropathy; R35.1 Nocturia; R39.12 Poor urinary stream; R33.8 Other retention of urine; E11.69 Type 2 diabetes mellitus with other specified complication; N52.1 Erectile dysfunction due to diseases classified elsewhere; I10 Essential (primary) hypertension; E78.5 Hyperlipidemia, unspecified; G89.4 Chronic pain syndrome; M10.9 Gout, unspecified; F41.9 Anxiety disorder, unspecified; Z79.85 Long-term (current) use of injectable non-insulin antidiabetic drugs; Z79.899 Other long term (current) drug therapy; Z87.891 Personal history of nicotine dependence
CPT/HCPCS: 52649; 82947; 88305; J1100; J1956; J2003; J2250; J2405; J2704; J3010

== ENCOUNTER → 2024-06-25 09:15 | Outpatient (BNV) | payer OTHER, SELFPAY | PROVIDERS: PCP Physician Assistant Medical; Visit Provider Urology | DX: N40.1 Benign prostatic hyperplasia with lower urinary tract symptoms (principal); N32.0 Bladder-neck obstruction | CPT/HCPCS: 52649 ==

== ENCOUNTER → 2024-06-28 08:11 | Outpatient (BNVA) | payer MEDICARE, SELFPAY | PROVIDERS: PCP Physician Assistant Medical; Visit Provider Urology | DX: N40.1 Benign prostatic hyperplasia with lower urinary tract symptoms (principal); N13.8 Other obstructive and reflux uropathy; N52.9 Male erectile dysfunction, unspecified | CPT/HCPCS: 51700; 51798 ==

== ENCOUNTER 2024-08-10 14:09 | Outpatient (AMB) | payer MEDICARE, SELFPAY ==
--- NOTE | 2024-08-10 14:24 | A.OFFVIS_ITS ---
Intake Visit Reasons: Geenlight- follow up Intake Note: Patient is present for GREENLIGHT F/U Urology Medication:TAMSULOSIN Antibiotic Allergy:NONE Blood Thinner:NONE Building Maintenance Technician Required: No Allergies No Known Allergies Allergy (Verified 08/10/24 14:26) HPI Comments Details: Mr Gillespie is a very pleasant male. He is a patient of Dr. Crowley. He is seen for following urologic conditions - lower urinary tract symptoms - erectile dysfunction GreenLight laser performed 07/13/2024 Effective emptying Restart tadalafil 5 mg daily Six-month follow-up PSA and PVR Has lost significant weight on GLP1 - 40lb Has placed in [facility] a [facility] near [place] Lower Urinary Tract Symptoms: Current visit is for further evaluation of, lower urinary tract symptoms, predominate obstructive symptoms Current treatment includes medication, - daily tadalafil with alfuzosin Prostate Symptom Score Mild (0-8), Bother 3. Symptoms include 01/08 incomplete emptying, weak stream, straining, and are progressing 08/11 , weak stream, nocturia (>2), and are stable 08/12 , incomplete emptying, weak stream Prior Prostate Score moderate. PSA 07/09 0.7, 07/11 0.8. 07/15 0.8 Imaging - 05/17 bladder ultrasound 75 g prostate Treatment plan continue with current medications. Erectile dysfunction: In setting of diabetes Progressive Diabetic with statin management Responds to oral medications Daily tadalafil with on demand medication prescription provided [facility] Medical History (Updated 06/25/24 @ 09:36 by Christina Carney RN) Sleep apnea Borderline diabetes Gout Hyperlipidemia HTN (hypertension) Chronic pain syndrome Anxiety Obesity Benign prostatic hyperplasia without lower urinary tract symptoms Erectile dysfunction due to arterial insufficiency Excessive urination at night Other microscopic hematuria Erectile dysfunction Surgical History History of total right knee replacement History of colonoscopy Social History Patient Tobacco Use Status: Former Tobacco user Tobacco use type: Cigarette Review of Systems Const Denies chills and Denies fever(s) Card Reports no additional complaints and Denies syncope Resp Denies cough GI Denies abdominal pain and Denies heartburn Reports as per HPI and Denies change in libido Neuro Denies syncope Psych Denies change in libido Endo Denies change in libido Physical Exam Const General: cooperative, healthy appearing, comfortable and no acute distress Orientation/consciousness: patient oriented x3 HEENT Face and sinus: Yes normal facial exam Mouth: moist mucous membranes Neck Neck: Yes normal visual inspection, Yes full ROM and Yes trachea midline Chest Chest palpation & inspection: normal inspection of the chest Resp Effort & Inspection: normal respiratory effort, able to speak in complete sentences and no respiratory distress GI Inspection: Yes normal to inspection Back/Spine/Pelvis Cervical Spine: normal cervical lordosis Thoracic/Lumbar Spine: thoracic and lumbar spine normal to inspection Skin General skin exam: no rashes or lesions noted Neuro General: patient oriented x3, gait normal, tone normal and moves all extremities Extrem General: Yes normal to inspection and Yes capillary refill normal Results AMB Urinalysis, Automated UA Leukoctes 500 Leno/uL Last Edit by ZUHAIR Haque on 08/10/24 14:37 UA Nitrite Negative Last Edit by Lopez Castano CCM on 08/10/24 14:37 UA Urobilinogen 0.2 mg/dL Last Edit by ZUHAIR Haque on 08/10/24 14:3 7 UA Protein 30 mg/dL Last Edit by Lopez Castano CCM on 08/10/24 14:37 UA pH 6.0 Last Edit by ZUHAIR Haque on 08/10/24 14:37 UA Blood 200 Daniel/uL Last Edit by ZUHAIR Haque on 08/10/24 14:37 UA Specific Johnson 1.020 Last Edit by ZUHAIR Haque on 08/10/24 14: 37 UA Ketone Negative Last Edit by Lopez Castano CCM on 08/10/24 14:37 UA Bilirubin 0 mg/dL Last Edit by ZUHAIR Haque on 08/10/24 14:37 UA Glucose 0 mg/dL Last Edit by Lopez Castano CCM on 08/10/24 14:37 Results Reviewed Results Reviewed: Laboratory Last Values Urine pH (Auto) 6.0 08/10/24 14:37 Specific Johnson (Auto) 1.020 08/10/24 14:37 Urine Protein (Auto) 30 mg/dL 08/10/24 14:37 Glucose (UA)(Auto) 0 mg/dL 08/10/24 14:37 Urine Ketones (Auto) Negative 08/10/24 14:37 Urine Blood (Auto) 200 Daniel/uL 08/10/24 14:37 Urine Nitrite (Auto) Negative 08/10/24 14:37 Urine Bilirubin (Auto) 0 mg/dL 08/10/24 14:37 Urine Urobilinogen (Auto) 0.2 mg/dL 08/10/24 14:37 Leukocyte Esterase (Auto) 500 Leno/uL 08/10/24 14:37 Assessment & Plan Assessment & Plan (1) Erectile dysfunction associated with type 2 diabetes mellitus: Code(s): E11.69 - Type 2 diabetes mellitus with other specified complication; N52.1 - Erectile dysfunction due to diseases classified elsewhere Category: Medical Plan Six-month follow-up PSA Orders: Orders AMB Urinalysis Automated Today Z13.9 - Encounter for screening, unspecified Prostate Specific Antigen 6 Months N13.8 - Other obstructive and reflux uropathy, N40.1 - Benign prostatic hyperplasia with lower urinary tract symptoms Medications: New tadalafil 5 mg PO DAILY 90 days 90 tabs 1RF sexual activity E11.69 - Type 2 diabetes mellitus with other specified complication, N52.1 - Erectile dysfunction due to diseases classified elsewhere Patient Instructions: Imaging studies, laboratory and physical exam results were discussed and reviewed in detail. No major barriers to patient understanding were identified. An opportunity to ask questions regarding the treatment plan was provided. All questions were answered. The patient expressed understanding and agreement with the above treatment plan. The patient is aware they should contact our office by phone for worsening of their current condition or the appearance of new urologic symptoms. Compliance is encouraged with any medications and followup testing that is ordered. It is a privilege to participate in the urologic care of your patient. If you have any questions or concerns regarding treatment for the above conditions, or other urologic issues, please do not hesitate to contact me. The office telephone contact is [phone]. This note is constructed using voice recognition software. While every effort has been made to ensure accuracy registered medical transcriptionist errors may have been included. Yours sincerely, Dr Dante Logan MD, [facility] - Urology Providers of Expert, Compassionate Care for the Genitourinary System Coding Level of Care Code Est Pt Level 4 (32926) Diagnoses Erectile dysfunction associated with type 2 diabetes mellitus E11.69; N52.1
== END 2024-08-10 15:20 | disposition home or self-care (01) ==
PROVIDERS: PCP Physician Assistant Medical; Visit Provider Urology
DX: E11.69 Type 2 diabetes mellitus with other specified complication (principal); N52.1 Erectile dysfunction due to diseases classified elsewhere; Z13.9 Encounter for screening, unspecified
CPT/HCPCS: 99024

== ENCOUNTER → 2024-08-10 14:09 | Outpatient (BNVA) | payer MEDICARE, SELFPAY | PROVIDERS: PCP Physician Assistant Medical; Visit Provider Urology | DX: E11.69 Type 2 diabetes mellitus with other specified complication (principal); N52.1 Erectile dysfunction due to diseases classified elsewhere | CPT/HCPCS: 81003; 99212 ==

== ENCOUNTER 2024-12-25 11:32 | Outpatient (AMB) | payer OTHER, MEDICAID, SELFPAY ==
--- NOTE | 2024-12-25 11:45 | MHC.OFFVIS ---
Intake Visit Reasons: 6m/PSA Intake Note: Patient is present for 6M/PSA Urology Medication:TADALAFIL Antibiotic Allergy:NONE Blood Thinner:NONE Forestry Contractor Required: No Allergies No Known Allergies Allergy (Verified 12/25/24 11:45) HPI Comments Details: Mr Gillespie is a very pleasant male. He is a patient of Dr. Crowley. He is seen for following urologic conditions - lower urinary tract symptoms - erectile dysfunction GreenLight laser performed 07/13/2024 Effective emptying Restart tadalafil 5 mg daily Has lost significant weight on GLP1 - 40lb Has placed in [facility] As a place near [place] Leaving to [place] at the end of the month 12 month follow-up Lower Urinary Tract Symptoms: Current visit is for further evaluation of, lower urinary tract symptoms, predominate obstructive symptoms Current treatment includes medication, - daily tadalafil with alfuzosin Prostate Symptom Score Mild (0-8), Bother 3. Symptoms include 01/08 incomplete emptying, weak stream, straining, and are progressing 08/11 , weak stream, nocturia (>2), and are stable 08/12 , incomplete emptying, weak stream Prior Prostate Score moderate. PSA 07/09 0.7, 07/11 0.8. 07/15 0.8, 01/16 0.5 Imaging - 05/17 bladder ultrasound 75 g prostate Treatment plan continue with current medications. Erectile dysfunction: In setting of diabetes Progressive Diabetic with statin management Responds to oral medications Daily tadalafil with on demand medication prescription provided [facility] Medical History (Updated 06/25/24 @ 09:36 by Christina Carney RN) Sleep apnea Borderline diabetes Gout Hyperlipidemia HTN (hypertension) Chronic pain syndrome Anxiety Obesity Benign prostatic hyperplasia without lower urinary tract symptoms Erectile dysfunction due to arterial insufficiency Excessive urination at night Other microscopic hematuria Erectile dysfunction Surgical History History of total right knee replacement History of colonoscopy Social History Patient Tobacco Use Status: Former Tobacco user Tobacco use type: Cigarette Review of Systems Const Denies chills and Denies fever(s) Card Reports no additional complaints and Denies syncope Resp Denies cough GI Denies abdominal pain and Denies heartburn Reports as per HPI and Denies change in libido Neuro Denies syncope Psych Denies change in libido Endo Denies change in libido Physical Exam Const General: cooperative, healthy appearing, comfortable and no acute distress Orientation/consciousness: patient oriented x3 HEENT Face and sinus: Yes normal facial exam Mouth: moist mucous membranes Neck Neck: Yes normal visual inspection, Yes full ROM and Yes trachea midline Chest Chest palpation & inspection: normal inspection of the chest Resp Effort & Inspection: normal respiratory effort, able to speak in complete sentences and no respiratory distress GI Inspection: Yes normal to inspection Back/Spine/Pelvis Cervical Spine: normal cervical lordosis Thoracic/Lumbar Spine: thoracic and lumbar spine normal to inspection Skin General skin exam: no rashes or lesions noted Neuro General: patient oriented x3, gait normal, tone normal and moves all extremities Extrem General: Yes normal to inspection and Yes capillary refill normal Assessment & Plan Assessment & Plan (1) BPH w urinary obs/LUTS: Code(s): N40.1 - Benign prostatic hyperplasia with lower urinary tract symptoms; N13.8 - Other obstructive and reflux uropathy Category: Medical (2) Erectile dysfunction associated with type 2 diabetes mellitus: Code(s): E11.69 - Type 2 diabetes mellitus with other specified complication; N52.1 - Erectile dysfunction due to diseases classified elsewhere Category: Medical Plan Twelve month follow-up Patient Instructions: This note is constructed using voice recognition software. While every effort has been made to ensure accuracy manager rn errors may have been included. Imaging studies, laboratory and physical exam results were discussed and reviewed in detail. No major barriers to patient understanding were identified. An opportunity to ask questions regarding the treatment plan was provided. All questions were answered. The patient expressed understanding and agreement with the above treatment plan. The patient is aware they should contact our office by phone for worsening of their current condition or the appearance of new urologic symptoms. Compliance is encouraged with any medications and followup testing that is ordered. It is a privilege to participate in the urologic care of your patient. If you have any questions or concerns regarding treatment for the above conditions, or other urologic issues, please do not hesitate to contact me. The office telephone contact is [phone]. Sincerely, Dr Dante Logan MD, [facility] - Urology Compassionate Specialist Care for the Genitourinary System Coding Level of Care Code Est Pt Level 3 (45840) Complex EM visit Add On G2211 Diagnoses BPH w urinary obs/LUTS N40.1; N13.8 Erectile dysfunction associated with type 2 diabetes mellitus E11.69; N52.1
--- OUTSIDE RECORDS SUMMARY | 2024-12-25 13:10 | XMS_ITS | Clinical Summary ---
Author Organization [address] Address [address] [place] [phone] Phone Care Team Providers [employer] Consultant Name Role Phone Cesar Crowley Primary Care Provider [phone] Allergies Active Allergy Reactions Criticality Noted Date Comments Iodinated Contrast Media Hives 10/18/2016 Medications albuterol HFA (PROAIR HFA ; PROVENTIL HFA ; VENTOLIN HFA) 90 mcg/actuation inhaler Inhale 2 puffs by mouth every 4 (four) hours if needed for wheezing or shortness of breath. 024 Active allopurinoL (ZYLOPRIM) 100 mg tablet Take 2 tablets (200 mg total) by mouth 1 (one) time each day. Active FreeStyle Lite Meter monitoring kit by extracorporeal route 2 (two) times a day. Active blood-glucose meter kit Use to check blood sugar once daily Active FREESTYLE LANCETS MISC Use to check blood sugar once daily Active ketotifen fumarate (ZADITOR) 0.035 % ophthalmic solution PLACE 1 DROP INTO BOTH EYES 2 TIMES DAILY NEEDED FOR ALLERGIC CONJUNCTIVITIS. 023 Active naloxone (NARCAN) 4 mg/0.1 mL nasal spray 4 mg by Nasal route See Admin Instructions. 4 (contents of 1 nasal spray) as a single dose in one nostril as needed for opiod overdose; may repeat every 2 to 3 minutes in alternating nostrils until medical assistance becomes available Active senna (SENOKOT) 8.6 mg tablet Take 2 tablets (17.2 mg total) by mouth 2 (two) times a day. Active rosuvastatin (CRESTOR) 20 mg tablet Take 1 tablet (20 mg total) by mouth 1 (one) time each day. 90 tablet 1 Active esomeprazole (NexIUM) [address] capsule TAKE 1 CAPSULE BY MOUTH EVERY DAY IN THE MORNING BEFORE BREAKFAST 90 capsule 1 Active celecoxib (CeleBREX) 200 mg capsule Take 1 capsule (200 mg total) by mouth 2 (two) times a day. 180 capsule 1 Active alfuzosin (UROXATRAL) 10 mg 24 hr tablet TAKE 1 TABLET BY MOUTH EVERY DAY 90 tablet 3 Active tadalafiL (CIALIS) 2.5 mg tabletIndicati ons:Benign prostatic hyperplasia with weak urinary stream Take 1 tablet (2.5 mg total) by mouth 1 (one) time each day. 90 tablet 1 025 Active pantoprazole (PROTONIX) 40 mg EC tablet TAKE 1 TABLET BY MOUTH EVERY DAY 90 tablet 1 025 Active clonazePAM (KlonoPIN) 0.5 mg tablet Take 1 Tablet by mouth every morning. and 1/2 tab in the pm - Oral 42 tablet Active lisinopriL (PRINIVIL,ZEST RIL) 30 mg tablet Take 1 tablet (30 mg total) by mouth 1 (one) time each day. 90 tablet 1 Active blood sugar diagnostic (FreeStyle Lite Strips) test strip Use as instructedUse to check blood sugar once daily 100 strip 5 Active amoxicillin (AMOXIL) 500 mg capsule Take 4 capsules (2,000 mg total) by mouth if needed (prn prior to dental work). Prior to dental work 4 capsule 5 Active ciclopirox (PENLAC) 8 % solution Apply topically at bedtime. Apply over nail and surrounding skin. Apply daily over previous coat. After seven (7) days, may remove with alcohol and continue cycle. 6.6 mL Active clobetasoL (TEMOVATE) 0.05 % cream Apply topically 2 (two) times a day. 30 g 3 025 Active hydrocortisone (ANUSOL-HC) 2.5 % rectal cream Insert into the rectum 3 (three) times a day if needed for hemorrhoids. 90 g 1 025 Active lidocaine 3 % cream Apply topically 3 (three) times a day if needed (pain). 30 g 11 025 Active tadalafiL (CIALIS) 20 mg tablet Take 1 tablet (20 mg total) by mouth 1 (one) time each day if needed for erectile dysfunction. 12 tablet 1 025 Active semaglutide (OZEMPIC) 0.25 mg or 0.5 mg (2 mg/3 mL) injection penIndications :Type 2 diabetes mellitus without complication, without long-term current use of insulin ([facility] V24, [facility] V28),Mixed hyperlipidemia ,Gout without tophus,Essenti al hypertension, benign,Chronic obstructive pulmonary disease, unspecified COPD type ([facility] V24, [facility] V28),Benign prostatic hyperplasia with weak urinary stream,Gastroe sophageal reflux disease, unspecified whether esophagitis present,Obstru ctive sleep apnea,Acute gout of right elbow, unspecified cause,Screenin g for AAA (abdominal aortic aneurysm) Inject 0.25 mg under the skin every 7 (seven) days. 6 mL 3 025 Active oxyCODONE (ROXICODONE) 5 mg immediate release tabletIndicati ons:Chronic pain syndrome Take 2 tablets (10 mg total) by mouth every 8 (eight) hours if needed for severe pain. Max Daily Amount: 30 mg 168 tablet 025 Active clotrimazole-b etamethasone (LOTRISONE) 1-0.05 % cream APPLY TO AFFECTED AREA TWICE A DAY DIRECTED 30 g 5 025 Active clotrimazole-b etamethasone (LOTRISONE) 1-0.05 % cream APPLY TO AFFECTED AREA TWICE A DAY DIRECTED 024 2024 Discontinued tirzepatide (Mounjaro) 2.5 mg/0.5 mL injectionIndic ations:Type 2 diabetes mellitus without complication, without long-term current use of insulin ([facility] V24, [facility] V28) Inject 0.5 mL (2.5 mg total) under the skin every 7 (seven) days. 6 mL 1 025 2024 Discontinued oxyCODONE (ROXICODONE) 5 mg immediate release tabletIndicati ons:Chronic pain syndrome Take 2 tablets (10 mg total) by mouth every 8 (eight) hours if needed for severe pain. Max Daily Amount: 30 mg 168 tablet 025 2024 Discontinued(R eorder) amoxicillin-cl avulanate (AUGMENTIN) 875-125 mg per tablet Take 1 tablet by mouth 2 (two) times a day for 5 days. 10 each 025 2024 doxycycline (VIBRAMYCIN) 100 mg capsule Take 2 capsules (200 mg total) by mouth 1 (one) time for 1 dose. Take with at least 8 ounces (large glass) of water, do not lie down for 30 minutes after. Administer 2 hours before or after multivitamins, antacids, or other products containing polyvalent cations (i.e., calcium, iron, magnesium, selenium, zinc). 2 each 025 2024 Active Problems Problem Noted Date Diagnosed Date COPD (chronic obstructive pu lmonary disease) ([facility] V24, [facility] V28) 08/19/2021 Type 2 diabetes mellitus wit hout complication, without long-term current use of insulin ([facility] V24, [facility] V28) 08/18/2021 Benign prostatic hyperplasia with weak urinary s tream 12/06/2018 Other chronic pain 05/26/2018 Class 2 obesity 12/08/2017 Obstructive sleep apnea 11/28/2017 Overview (06/14/2024): [facility] Home Polysomnogram: Date 11/17/2017; AHI 58, Unclassified apneas 1; Obstructive apneas 116; Central apneas 3; Mixed apneas 0; hypopneas 43; average oxygen saturation 90% (lowest 81% with saturations <88% for 5% or more of study) - Obstructive Sleep Apnea - severe; mostly obstructive apneas and hypopneas; with sleep related hypoventilation by 2017 home polysomnogram. Last Assessment & Plan: Patient has severe sleep apnea. I explained Thee that my recommendation was to repeat a new study with titration before prescribing a new machine. He states that he still not sure if he will use the machine and would prefer to lose weight. I also talked to him about the cardiovascular risk associated with untreated sleep apnea and he understood. Patient will start an exercise program and if he feels that he is unable to lose weight or if he feels that he has lost enough weight he would like to try a new study in the future. He will continue following with his primary. - Obstructive Sleep Apnea - severe; mostly obstructive apneas and hypopneas; with sleep related hypoventilation by 2018 home polysomnogram. - Comorbid conditions that may benefit [facility] management: HTN, obesity, prediabetes, anxiety. S/P TKR (total knee replacement) 12/09/2016 Positive VA (antinuclear antibody) 04/17/2016 Gout without tophus 02/18/2016 Acute gout of right elbow 12/02/2015 GERD (gastroesophageal reflux disease) 2 Assessment & Plan (08/15/2024 10:47 AM EST): Increase Nexium to 40mg BID for 4 weeks If no better EGD No late night eating Orders: esomeprazole (NexIUM) [address] capsule; Take 1 capsule (40 mg total) by mouth 2 (two) times a day. Do not open capsule. Chronic pain syndrome 2011 Microscopic hematuria 03/30/2011 Anxiety 05/27/2010 Achilles tendon rupture 09/12/2009 Essential hypertension, benign 05/28/2005 External hemorrhoids 05/28/2005 Overview (06/14/2024): IMO update Hyperlipidemia 05/28/2005 Other acne 05/28/2005 Encounters Date Type Department Care Team Description 12/18/2024 11:30 AM EDT Office Visit Walk-In Clinic - [address] [phone] Chino Benson PA Tick bite of left calf, initial encounter (Primary Dx) 12/18/2024 Telephone Adult Medicine [address] [phone] Cesar Crowley PA Tick Removal (bite) 12/07/2024 Telephone Lung Screening Program - [address] [phone] Rashida Leo MA Appointment (1st Notification) 12/03/2024 3:00 PM EDT Office Visit Adult Medicine [address] [phone] David Bonilla PA Acute otitis media, unspecified otitis media type (Primary Dx) 12/03/2024 Telephone Adult Medicine [address] [phone] Cesar Crowley PA Earache 11/19/2024 Telephone Adult [address] [phone] Cesar Crowley PA prior auth for medication 11/13/2024 1:48 PM EDT - 11/13/2024 11:59 PM EDT Hospital Encounter [address] [phone] Type 2 diabetes mellitus without complication, without long-term current use of insulin ([facility] V24, CMS/HCC V28); Mixed hyperlipidemia; Gout without tophus; Essential hypertension, benign; Chronic obstructive pulmonary disease, unspecified COPD type (CMS/HCC V24, CMS/HCC V28); Benign prostatic hyperplasia with weak urinary stream; Gastroesophageal reflux disease, unspecified whether esophagitis present; Obstructive sleep apnea; Acute gout of right elbow, unspecified cause; Screening for AAA (abdominal aortic aneurysm); Encounter for therapeutic drug level monitoring; Encounter for screening for malignant neoplasm of prostate; Acute pain of right shoulder Discharge Disposition: Home or Self Care 11/13/2024 12:45 PM EDT Office Visit Adult Medicine [address] [phone] Csear Crowley PA Type 2 diabetes mellitus without complication, without long-term current use of insulin ([facility] V24, [facility] V28) (Primary Dx); Mixed hyperlipidemia; Gout without tophus; Essential hypertension, benign; Chronic obstructive pulmonary disease, unspecified COPD type ([facility] V24, [facility] V28); Benign prostatic hyperplasia with weak urinary stream; Gastroesophageal reflux disease, unspecified whether esophagitis present; Obstructive sleep apnea; Acute gout of right elbow, unspecified cause; Screening for AAA (abdominal aortic aneurysm); Encounter for therapeutic drug level monitoring; Encounter for screening for malignant neoplasm of prostate; Acute pain of right shoulder from Last 3 Months Immunizations Name Administration Dates Next Due Hepatitis B (Rmjdkjp-A-[id number] , Recombivax HB-Adult) 19yo and older 10/18/2000 Influenza trivalent, 0.5mL, preservative free (Fluarix; FluLaval; Fluzone) ages 6mo and older (Afluria) 3 years and older 04/13/2013 Influenza, Unspecified 04/16/2014 [employer] SARS-CoV-2 COVID-19, mRNA, LNP-S, preservative free 10/21/2021,05/18/2021 Td Tetanus diptheria (Tdvax) 7yo and older 06/11 Tdap Tetanus diptheria acell ular pertussis (Boostrix; Adacel) 7yo and older 01/22/2009 Zoster recombinant (Shingrix) 19yo and older ,05/11/2022 Surgical History Surgery Date Site/Laterality Comments COLONOSCOPY 03/03/2012 PROCEDURE: HISTORICAL COLONOSCOPY; COMMENT: tics; repeat in ten yrs TOTAL KNEE ARTHROPLASTY Right PROCEDURE: HISTORICAL TOTAL KNEE REPLACE EYE SURGERY 10/2017 Bilateral PROCEDURE: HISTORICAL EYE SURGERY; COMMENT: lasik eye surgery COLONOSCOPY 11/22/2022 PROCEDURE: HISTORICAL COLONOSCOPY; COMMENT: muslu - diverticulosis, hemorrhoids, repeat 10 years Medical History Medical History Date Comments Hyperlipidemia DX:Hyperlipidemi a Hypertension DX:Hypertension GERD (gastroesophageal reflu x disease) DX:GERD (gastroesophageal re flux disease) External hemorrhoids 05/28/2005 DX:External hemorrhoids; COMMENT: IMO update Essential hypertension, benign 05/28/2005 D X:Essential hypertension, benign Other acne 05/28/2005 DX:Other acne Achilles tendon rupture 09/12/2009 DX:Achil les tendon rupture Anxiety 05/27/2010 DX:Anxiety Microscopic hematuria 03/30/2011 DX:Microsc opic hematuria Chronic pain syndrome 2011 DX:Chronic pain syndrome Obesity 2011 DX:Obesity Acute gout of right elbow 12/02/2015 DX:Acu te gout of right elbow Gout without tophus 02/18/2016 DX:Gout with out tophus Positive VA (antinuclear antibody) 04/17/2016 DX:Positive VA (antinuclear antibody) Impaired fasting blood sugar 04/23/2016 DX: Impaired fasting blood sugar S/P TKR (total knee replacement) 12/09/2016 DX:S/P TKR (total knee replacement) Prediabetes 11/03/2017 DX:Prediabetes Obstructive sleep apnea 11/28/2017 DX:Obstr uctive sleep apnea; COMMENT: [facility] Home Polysomnogram: Date 11/17/2017; AHI 58, Unclassified apneas 1; Obstructive apneas 116; Central apneas 3; Mixed apneas 0; hypopneas 43; average oxygen saturation 90% (lowest 81% with saturations <88% for 5% or more of study) - Obstructive Sleep Apnea - severe; mostly obstructive apneas and hypopneas; with sleep related hypoventilation by 2018 home polys* Class 2 obesity 12/08/2017 DX:Class 2 obesi ty Other chronic pain 05/26/2018 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 Benign prostatic hyperplasia with weak urinary stream 12/06/2018 DX:Benign prostatic hyperpla brandy with weak urinary stream Family History Medical History Relation Name Comments Diabetes Father Other: prostate issues Father Hypertension Mother Relation Name Status Comments Brother 1 Alive hiradenitis sup puritiva Brother 2 Alive healthy Father (Age 75) CVA, HTN, DMII, cholesterol Mother Alive healthy Sister Alive celiac disease Son 1 Alive healthy Son 2 Alive healthy Social History Tobacco Use Types Packs/Day Years Used Date Smoking Tobacco: Former Cigarettes 1 38.4 0 02/24/1972 - 07/25/2010 Smokeless Tobacco: Never Tobacco Cessation:Counseling Given: Not Answered Alcohol Use Standard Drinks/Week Comments Yes 0 (1 standard drink = 0.6 oz pur e alcohol) Sex and Gender Information Value Date Recorded Sex Assigned at Not on file Legal Sex Male 8:35 PM EST Gender Identity Not on file Sexual Orientation Not on file Obstetrics History Last Filed Vital Signs Vital Sign Reading Time Taken Comments Blood Pressure 134/86 12/18/2024 11:14 AM EDT Pulse 84 12/18/2024 11:14 AM EDT Temperature 36.6 ??C (97.8 ??F) 12/03/2024 2:57 PM ED T Respiratory Rate 14 12/03/2024 2:57 PM EDT Oxygen Saturation 97% 12/18/2024 11:14 AM EDT Inhaled Oxygen Concentration - - Weight 95.3 kg (210 lb) 12/03/2024 2:57 PM EDT Height 165.1 cm (5' 5 ) 12/03/2024 2:57 PM EDT Body Mass Index 34.95 12/03/2024 2:57 PM EDT Plan of Treatment Upcoming Encounters Date Type Department Care Team (Late st Contact Info) Description 01/02/2025 1:15 PM EDT Appointment [facility] Scan [address] [place] [phone] 04/15/2025 10:45 AM EDT Office Visit Adult Medicine [facility] - [address] [phone] Cesar Crowley PA [address] [place] [address] 04/30/2025 7:45 AM EDT Appointment Radiology Department - [address] [phone] Health Maintenance Due Date Last Done Comments Hepatitis B Vaccines (2 of 3 - 19+ 3-dose series) 11/15/2000 10/18/2000 RSV Immunization Adult Patients (1 - Risk 60-74 years 1-dose series) 2019 Abdominal Aortic Aneurysm (AAA) Screen 07/03/2022 Medicare Annual Wellness Visit 07/03/2022 Social Influencers of Health Screening 07/03/2022 COVID-19 Vaccine ( season) 2024 10/21/2021, 05/18/2021, 11/13/2020, Additional history exists Falls Risk Assessment 2024 Depression Screening 09/29/2024 09/30/2023 Lung Cancer Screening (Low Dose CT) 12/28/2024 12/29/2023 Diabetes: Annual Foot Exam 01/03/2025 01/04/2024 Influenza Vaccine (Season Ended) 2025 04/16/2014, 04/13/2013 Diabetes: Blood Sugar Control Test (HGBA1C) 05/15/2025 11/13/2024, 08/07/2024, 05/07/2024, Additional history exists Diabetes: Annual Retina Eye Exam 05/25/2025 05/25/2024, 01/04/2024 Diabetes: Annual Urine Albumin-Creatinine Ratio (uACR) 11/13/2025 11/13/2024, 08/07/2024, 05/07/2024 Diabetes: Annual GFR (Glomerular Filtration Rate) 11/13/2025 11/13/2024, 08/07/2024, 05/07/2024, Additional history exists Hypertension/CHF/CAD Annual BMP Blood Test 11/13/2025 11/13/2024, 08/07/2024, 05/07/2024, Additional history exists DTaP,Tdap,and Td Vaccines (3 - Td or Tdap) 06/11/2029 06/11/2019, 01/22/2009 Cholesterol Screening (Lipid Panel) 11/13/2029 11/13/2024, 08/07/2024, 05/07/2024, Additional history exists Colorectal Cancer Screening: Colonoscopy 11/22/2032 11/22/2022 Hepatitis C Screening Completed 11/21/2015 Zoster Vaccines Completed 2022, 05/11/2022 HIB Vaccines Aged Out No longer eligi ble based on patient's age to complete this topic HPV Vaccines Aged Out No longer eligi ble based on patient's age to complete this topic Hepatitis A Vaccines Aged Out No long er eligible based on patient's age to complete this topic IPV Vaccines Aged Out No longer eligi ble based on patient's age to complete this topic MMR Vaccines Aged Out No longer eligi ble based on patient's age to complete this topic Meningococcal ACWY Vaccine Aged Out N o longer eligible based on patient's age to complete this topic Meningococcal B Vaccine Aged Out No l onger eligible based on patient's age to complete this topic Pneumococcal Vaccine: 50+ Years Discontinued Pneumococcal Vaccine: Pediatrics (0 to 5 Years) and At-Risk Patients (6 to 64 Years) Discontinued RSV Immunization Patients Under 20 months Aged Out No longer eligible based on patient's age to complete this topic Varicella Vaccines Aged Out No longer eligible based on patient's age to complete this topic Procedures Procedure Name Priority Date/Time Associated Diagnosis Comments OPIATES CONFIRMATION, URINE Routine 11/13/2024 2:18 PM EDT Type 2 diabetes mellitus without complication, without long-term current use of insulin ([facility] V24, [facility] V28) Mixed hyperlipidemia Gout without tophus Essential hypertension, benign Chronic obstructive pulmonary disease, unspecified COPD type ([facility] V24, [facility] V28) Benign prostatic hyperplasia with weak urinary stream Gastroesophageal reflux disease, unspecified whether esophagitis present Obstructive sleep apnea Acute gout of right elbow, unspecified cause Screening for AAA (abdominal aortic aneurysm) Encounter for therapeutic drug level monitoring MICROALBUMIN CREATININE URINE RATIO Routine 11/13/2024 2:18 PM EDT Type 2 diabetes mellitus without complication, without long-term current use of insulin ([facility] V24, [facility] V28) Mixed hyperlipidemia Gout without tophus Essential hypertension, benign Chronic obstructive pulmonary disease, unspecified COPD type ([facility] V24, [facility] V28) Benign prostatic hyperplasia with weak urinary stream Gastroesophageal reflux disease, unspecified whether esophagitis present Obstructive sleep apnea Acute gout of right elbow, unspecified cause Screening for AAA (abdominal aortic aneurysm) DRUG ABUSE SCREEN EXPANDED WITH REFLEX CONFIRMATION, URINE Routine 11/13/2024 2:18 PM EDT Type 2 diabetes mellitus without complication, without long-term current use of insulin ([facility] V24, [facility] V28) Mixed hyperlipidemia Gout without tophus Essential hypertension, benign Chronic obstructive pulmonary disease, unspecified COPD type ([facility] V24, [facility] V28) Benign prostatic hyperplasia with weak urinary stream Gastroesophageal reflux disease, unspecified whether esophagitis present Obstructive sleep apnea Acute gout of right elbow, unspecified cause Screening for AAA (abdominal aortic aneurysm) Encounter for therapeutic drug level monitoring PROSTATE SPECIFIC ANTIGEN SCREEN Routine 11/13/2024 2:17 PM EDT Type 2 diabetes mellitus without complication, without long-term current use of insulin ([facility] V24, [facility] V28) Mixed hyperlipidemia Gout without tophus Essential hypertension, benign Chronic obstructive pulmonary disease, unspecified COPD type ([facility] V24, [facility] V28) Benign prostatic hyperplasia with weak urinary stream Gastroesophageal reflux disease, unspecified whether esophagitis present Obstructive sleep apnea Acute gout of right elbow, unspecified cause Screening for AAA (abdominal aortic aneurysm) Encounter for screening for malignant neoplasm of prostate URIC ACID Routine 11/13/2024 2:17 PM EDT Type 2 diabetes mellitus without complication, without long-term current use of insulin ([facility] V24, [facility] V28) Mixed hyperlipidemia Gout without tophus Essential hypertension, benign Chronic obstructive pulmonary disease, unspecified COPD type ([facility] V24, [facility] V28) Benign prostatic hyperplasia with weak urinary stream Gastroesophageal reflux disease, unspecified whether esophagitis present Obstructive sleep apnea Acute gout of right elbow, unspecified cause Screening for AAA (abdominal aortic aneurysm) HEMOGLOBIN A1C Routine 11/13/2024 2:17 PM EDT Type 2 diabetes mellitus without complication, without long-term current use of insulin ([facility] V24, [facility] V28) Mixed hyperlipidemia Gout without tophus Essential hypertension, benign Chronic obstructive pulmonary disease, unspecified COPD type ([facility] V24, [facility] V28) Benign prostatic hyperplasia with weak urinary stream Gastroesophageal reflux disease, unspecified whether esophagitis present Obstructive sleep apnea Acute gout of right elbow, unspecified cause Screening for AAA (abdominal aortic aneurysm) COMPREHENSIVE METABOLIC PANEL Routine 11/13/2024 2:17 PM EDT Type 2 diabetes mellitus without complication, without long-term current use of insulin ([facility] V24, [facility] V28) Mixed hyperlipidemia Gout without tophus Essential hypertension, benign Chronic obstructive pulmonary disease, unspecified COPD type ([facility] V24, [facility] V28) Benign prostatic hyperplasia with weak urinary stream Gastroesophageal reflux disease, unspecified whether esophagitis present Obstructive sleep apnea Acute gout of right elbow, unspecified cause Screening for AAA (abdominal aortic aneurysm) LIPID PANEL WITH REFLEX TO DIRECT LDL Routine 11/13/2024 2:17 PM EDT Type 2 diabetes mellitus without complication, without long-term current use of insulin ([facility] V24, [facility] V28[facility] Mixed hyperlipidemia Gout without tophus Essential hypertension, benign Chronic obstructive pulmonary disease, unspecified COPD type ([facility] V24, [facility] V28) Benign prostatic hyperplasia with weak urinary stream Gastroesophageal reflux disease, unspecified whether esophagitis present Obstructive sleep apnea Acute gout of right elbow, unspecified cause Screening for AAA (abdominal aortic aneurysm) XR SHOULDER 2+ VIEWS RIGHT Routine 11/13/2024 1:56 PM EDT Type 2 diabetes mellitus without complication, without long-term current use of insulin ([facility] V24, [facility] V28) Mixed hyperlipidemia Gout without tophus Essential hypertension, benign Chronic obstructive pulmonary disease, unspecified COPD type ([facility] V24, [facility] V28) Benign prostatic hyperplasia with weak urinary stream Gastroesophageal reflux disease, unspecified whether esophagitis present Obstructive sleep apnea Acute gout of right elbow, unspecified cause Screening for AAA (abdominal aortic aneurysm) Encounter for therapeutic drug level monitoring Encounter for screening for malignant neoplasm of prostate Acute pain of right shoulder EXTERNAL DIABETIC RETINA EYE EXAM 05/25/2024 DIABETES FOOT EXAM Routine 01/04/2024 CT LUNG SCREENING LOW DOSE Routine 12/29/2023 4:58 PM EDT Encounter for screening for malignant neoplasm of respiratory organs DEPRESSION SCREENING Routine 09/30/2023 COLONOSCOPY Routine 11/22/2022 HEPATITIS C SCREENING Routine 11/21/2015 from Last 3 Months or Most Recently Relevant to Health Maintenance Results * (ABNORMAL) Drug abuse screen expanded with reflex confirmation, urine (11/13/2024 2:18 PM EDT) Amphetamine Screen, Ur Negative Negative LAB CHEMISTRY METHOD 5:42 PM EDT [facility] Comment:Certain OTC medicati ons containing ephedrine, phenylephrine, pseudoephedrine and phenylpropanolamine can cause false positive results. Barbiturate Screen, Ur Negative Negative LAB CHEMISTRY METHOD 5 5:[address] [facility] Benzodiazepine Screen, Ur Negative Negative LAB CHEMISTRY METHOD 5 5:[address] [facility] Cocaine Screen, Ur Negative Negative LAB CHEMISTRY METHOD 5 5:[address] [facility] Opiate Screen, Ur Positive(A ) Negative LAB CHEMISTRY METHOD 5 5:[address] [facility] Cannabinoid (THC) Screen, Ur Negative Negative LAB CHEMISTRY METHOD 5 5:[address] [facility] Comment:Specimens from patie nts taking pantoprazole sodium (Protonix) have been shown to produce false positive results. Fentanyl, Ur Negative Negative LAB CHEMISTRY METHOD 5 5:[address] [facility] Oxycodone Screen, Ur Positive(A ) Negative LAB CHEMISTRY METHOD 5 5:[address] [facility] Urine Urine specimen obtained by clean catch procedure / Unknown Non-blood Collection / Unknown 11/13/2024 2:18 PM EDT 11/13/2024 2:[address] [facility] - 11/13/2024 5:42 PM EDT Assay cutoffs: Amphetamines ? 1000 ng/mL Barbiturates ?200 ng/mL Benzodiazepines ?? 200 ng/mL Cocaine ? 300 ng/mL Fentanyl ?1 ng/mL Opiates ? 300 ng/mL Oxycodone ? 100 ng/mL THC ?50 ng/mL Semi-quantitative assay for screening purposes only. Unconfirmed screening result should not be used for non-medical purposes. *POSITIVE RESULTS ARE AUTOMATICALLY SENT FOR ALTERNATE METHOD CONFIRMATION* us Cesar LAWRENCE LAB URINE ORDERABLES Neda jacklyn Result [facility] ([facility]) [facility] [address] [place] [address], * Opiates confirmation, urine (11/13/2024 2:18 PM EDT) Pathologist [facility] Morphine Confirm, Urine Negative ng/mL 11/16/2024 11:38 PM EDT [facility] Codeine Confirm, Urine Negative ng/mL 11/16/2024 11:38 PM EDT [facility] Hydrocodone Confirm, Urine Negative ng/mL 11/16/2024 11:38 PM EDT [facility] Hydromorphone Confirm, Urine Negative ng/mL 11/16/2024 11:38 PM EDT [facility] Oxycodone Confirm, Urine 4142 ng/mL 11/16/2024 11:38 PM EDT [facility] Oxymorphone Confirm, Urine 2271 ng/mL 11/16/2024 11:38 PM EDT [facility] Creatinine 199 20 - 250 mg/dL 11/16/2024 11:38 PM EDT [facility] Adulterants Negative 11/16/2024 11:38 PM EDT [facility] Comment: ? Confirmation (LC/MS/MS) Decision Limits ?Morphine ?25 ng/mL ?Codeine ? 25 ng/mL ?Hydrocodone ? 25 ng/mL ?Hydromorphone ? 25 ng/mL ?Oxycodone ? 25 ng/mL ?Oxymorphone ? 25 ng/mL ?Adulterant Decision Limit: ? General Oxidants ? 200 ug/mL ?The adulterant assay tests for General Oxidants, ??including Chromates and Nitrites. ??Adulterants are ??substances either ingested or added directly to a ??urine specimen to prevent the detection of drug use. If applicable, any drug confirmation testing reported here was developed and the performance characteristics determined by [facility]. This confirmation testing has not been cleared or approved by the FDA. The laboratory is regulated under CLIA as qualified to perform high-complexity testing. This test is used for patient testing purposes. It should not be regarded as investigational or for research. Test performed at [facility], [address], [place], [place] ??[address] ? [phone] Nia Streeter MD, PhD - [employer] Urine Urine specimen obtained by clean catch procedure / Unknown Non-blood Collection / Unknown 11/13/2024 2:18 PM EDT 11/13/2024 5:42 PM EDT us Cesar LAWRENCE LAB URINE ORDERABLES Neda villasenor Result [facility] [address] [place] [address] * Microalbumin creatinine urine ratio (11/13/2024 2:18 PM EDT) Creatinine, Urine 235.0 mg/dL LAB CHEMISTRY METHOD 11/13/2024 5:[address] [facility] Microalb, Ur 15.4 0.0 - 29.0 mg/L LAB CHEMISTRY METHOD 11/13/2024 5:[address] [facility] Microalb/Creat Ratio 7 <30 mg/g creat LAB CHEMISTRY METHOD 11/13/2024 5:[address] [facility] Urine Urine specimen obtained by clean catch procedure / Unknown Non-blood Collection / Unknown 11/13/2024 2:18 PM EDT 11/13/2024 2:18 PM EDT [facility] URINE ORDERABLES Neda l Result Performing Organization Address [facility] de Phone Number [facility] [address] [place] [address], [place] [phone] * Prostate specific antigen screen (11/13/2024 2:17 PM EDT) PSA 0.45 0.00 - 4.00 ng/mL LAB CHEMISTRY METHOD 11/13/2024 6:[address] [facility] Blood Venous blood specimen / Unknown Venipuncture / Unknown 11/13/2024 2:17 PM EDT 11/13/2024 2:[address] [facility] - 11/13/2024 6:58 PM EDT The Siemens Advia Centaur Chemiluminescent Immunoassay is used. Results obtained with different assay methods or kits cannot be used interchangeably. Results cannot be interpreted as absolute evidence of the presence or absence of malignant disease. Cesar Crowley [place] LAB BLOOD ORDERABLES Neda l Result Performing Organization Address [facility] de Phone Number [facility] [address] [place] [address], [place] [phone] * (ABNORMAL) Lipid panel with reflex to direct LDL (11/13/2024 2:17 PM EDT) Cholesterol 142 0 - 200 mg/dL LAB CHEMISTRY METHOD 11/13/2024 5:[address] [facility] Triglycerides 220(H) 0 - 150 mg/dL LAB CHEMISTRY METHOD 11/13/2024 5:[address] [facility] HDL 38(L) >=40 mg/dL LAB CHEMISTRY METHOD 11/13/2024 5:[address] [facility] LDL Calculated 60 0 - 100 mg/dL LAB CHEMISTRY METHOD 11/13/2024 5:[address] [facility] VLDL Cholesterol Gen 44 mg/dL LAB CHEMISTRY METHOD 11/13/2024 5:[address] [facility] Non HDL Chol. (LDL+VLDL) 104 <145 mg/dL LAB CHEMISTRY METHOD 11/13/2024 5:[address] [facility] Chol/HDL Ratio 3.7 0.0 - 4.4 LAB CHEMISTRY METHOD 11/13/2024 5:[address] [facility] Blood Venous blood specimen / Unknown Venipuncture / Unknown 11/13/2024 2:17 PM EDT 11/13/2024 2:17 PM EDT [facility]WR[facility] LAB BLOOD ORDERABLES Neda l Result [facility] [address] [place] [address], [place] [phone] * Uric acid (11/13/2024 2:17 PM EDT) Uric Acid 5.1 3.7 - 9.2 mg/dL LAB CHEMISTRY METHOD 11/13/2024 5:[address] [facility] Blood Venous blood specimen / Unknown Venipuncture / Unknown 11/13/2024 2:17 PM EDT 11/13/2024 2:17 PM EDT [facility] LAWR[facility] LAB BLOOD ORDERABLES Neda l Result [facility] [address] [place] [address], [place] [phone] * Hemoglobin A1c (11/13/2024 2:17 PM EDT) [facility] Hemoglobin A1C 5.6 <6.5 % LAB CHEMISTRY METHOD 11/13/2024 10:[address] [facility] Mean Bld Glu Estim. 114 mg/dL LAB CHEMISTRY METHOD 11/13/2024 10:[address] [facility] Blood Venous blood specimen / Unknown Venipuncture / Unknown 11/13/2024 2:17 PM EDT 11/13/2024 2:17 PM EDT us Cesar LAWRENCE LAB BLOOD ORDERABLES Neda villasenor Result [facility] [address] [place] [address], * Comprehensive metabolic panel (11/13/2024 2:17 PM EDT) [facility] Sodium 140 133 - 145 mmol/L LAB CHEMISTRY METHOD 11/13/2024 5:48 PM [facility] Potassium 4.3 3.5 - 5.5 mmol/L LAB CHEMISTRY METHOD 11/13/2024 5:48 PM [facility] Chloride 106 96 - 110 mmol/L LAB CHEMISTRY METHOD 11/13/2024 5:48 PM [facility] CO2 27 21 - 32 mmol/L LAB CHEMISTRY METHOD 11/13/2024 5:48 PM [facility] Anion Gap 7 3 - 11 LAB CHEMISTRY METHOD 11/13/2024 5:48 PM [facility] Glucose 93 70 - 100 mg/dL LAB CHEMISTRY METHOD 11/13/2024 5:48 PM [facility] BUN 22 5 - 25 mg/dL LAB CHEMISTRY METHOD 11/13/2024 5:48 PM [facility] Creatinine 1.04 0.70 - 1.30 mg/dL LAB CHEMISTRY METHOD 11/13/2024 5:[address] [facility] eGFR 80 >=60 mL/min/1. 73m2 LAB CHEMISTRY METHOD 11/13/2024 5:[address] [facility] Comment:Calculation based on the??Chronic Kidney Disease Epidemiology Collaboration (CKD-EPI) equation refit??without adjustment for race. BUN/Creatinine Ratio 21.2 LAB CHEMISTRY METHOD 11/13/2024 5:[address] [facility] Calcium 9.6 8.5 - 10.5 mg/dL LAB CHEMISTRY METHOD [facility] ([facility]OT) 25 10 - 42 unit/L LAB CHEMISTRY METHOD 11/13/2024 5:48 PM [facility] ALT (SGPT) 32 10 - 60 unit/L LAB CHEMISTRY METHOD 11/13[facility]24 [facility] Alkaline Phosphatase 83 42 - 121 unit/L LAB CHEMISTRY METHOD 11/13/2024 5:48 PM [facility] Total Protein 7.9 6.0 - 8.0 g/dL LAB CHEMISTRY METHOD 11/13/2024 5:48 PM [facility] Albumin 4.0 3.2 - 5.0 g/dL LAB CHEMISTRY METHOD 11/13/2024 5:48 PM [facility] Total Bilirubin 0.6 0.0 - 1.4 mg/dL LAB CHEMISTRY METHOD 11/13/2024 5:48 PM [facility] Blood Venous blood specimen / Unknown Venipuncture / Unknown 11/13/2024 2:17 PM EDT 11/13/2024 2:17 PM EDT us Cesar LAWRENCE LAB BLOOD ORDERABLES Neda villasenor Result [facility] [address] [place] [address], * XR Shoulder 2+ Views Right (11/13/2024 1:56 PM EDT) Anatomical Region Laterality Modality Upper Extremities, Shoulder Right Radi ographic Imaging 11/13/2024 7:28 PM EDT Impressions 11/13/2024 7:29 PM EDT No acute fracture or dislocation of the right shoulder. -------- FINAL REPORT -------- Dictated By: Coty Martin Dictated Date: 11/13/2024 19:28 ET Assigned Physician: Coty Martin Reviewed and Electronically Signed By: Coty Martin Signed Date: 11/13/2024 19:29 ET Workstation ID: [id number] Transcribed By: Self Edit Transcribed Date: 11/13/2024 19:28 ET Narrative 11/13/2024 7:29 PM EDT HISTORY: shoulder pain right shoulder pain TECHNIQUE: 4 views of the right shoulder COMPARISON: None FINDINGS: No acute fracture or dislocation is seen. There is no evidence of malalignment. The AC joint is intact. Procedure Note Coty Martin MD - 11/13/2024 HISTORY: shoulder pain right shoulder pain TECHNIQUE: 4 views of the right shoulder COMPARISON: None FINDINGS: No acute fracture or dislocation is seen. There is no evidence ofmalalignment. The AC joint is intact. IMPRESSION: No acute fracture or dislocation of the right shoulder. -------- FINAL REPORT -------- Dictated By: Coty Martin Dictated Date: 11/13/2024 19:28 ET Assigned Physician: Coty Martin Reviewed and Electronically Signed By: Coty Martin Signed Date: 11/13/2024 19:29 ET Workstation ID: [id number] Transcribed By: Self Edit Transcribed Date: 11/13/2024 19:28 ET Cesar LAWRENCE IMG XR PROCEDURES Final R esult * External Diabetic Retina Eye Exam Report (05/25/2024) Anatomical Region Laterality Modality Ultrasound us Provider [facility] US PROCEDURES Final Result * Diabetes Foot Exam (01/04/2024) Diabetes: Annual Foot Exam abstracted us Historical Provider HEALTH MAINTENANCE Final Result * CT LUNG SCREENING LOW DOSE (12/29/2023 4:58 PM EDT) Anatomical Region Laterality Modality Computed Tomogra phy 12/29/2023 11:0 1 AM EDT Narrative 12/29/2023 4:58 PM EDT [facility] Diagnostic Imaging Department [address] [place] [address] [id number] Patient: ??THEE GILLESPIE ?/Age/Sex: 1960 - 63 - M Unit#: ??[id number] ? Location/Status: ??SPDICATLS/REG CLI ? Mnemonic/Ordering Site: ??CTLUNGLD/SPCT Ordering Physician: ??BERLIN RHODES MD CT Lung Screening Low Dose - 12/29/23 - 5 Report Status:Signed PROCEDURE: Chest CT INDICATION: Low dose lung cancer screening, former smoker, 51.25 pack year smoking history TECHNIQUE: Chest CT without contrast. Multi planar reformats were created and interpreted. The examination was performed utilizing dose reduction techniques. Total DLP 101 COMPARISON: ??04/25/2018 FINDINGS: LUNGS/PLEURA: Central airways are patent. ??No new or suspicious pulmonary nodules.. No pleural effusion or pneumothorax. MEDIASTINUM: Thyroid gland is unremarkable. No mediastinal or hilar lymphadenopathy. Cardiac chambers are normal in size. No pericardial effusion. Severe coronary artery calcifications Esophagus is normal. CHEST WALL: No axillary lymphadenopathy or superficial hematoma. UPPER ABDOMEN:The visualized portions of the upper abdomen are unremarkable. BONES: Bones are normal for age. IMPRESSION: No new or suspicious pulmonary nodules. ??Lung RADS 1-negative. ??Recommend continued screening with low-dose chest CT in 12 months. Dictating Physician: ??ALVIN RAMOS MD Electronically Signed by: ??ALVIN RAMOS MD Dic Date/Time: ??12/29/23 1636 Sign date/Time: ??12/29/23 7887 Procedure Note Alvin Ramos MD - 05/09/2024 [facility] Diagnostic Imaging Department [address] [place] [address] Patient: THEE GILLESPIE Jenna /Age/Sex: 1960 - 63 - M Unit#: [id number] Location/Status: MAUREEN/ROBI CLI Mnemonic/Ordering Site: [facility] Ordering Physician: BERLIN RHODES MD CT Lung Screening Low Dose - 12/29/23 - 1115 Report Status:Signed PROCEDURE: Chest CT INDICATION: Low dose lung cancer screening, former smoker, 51.25 packyear smoking history TECHNIQUE: Chest CT without contrast. Multi planar reformats were createdand interpreted. The examination was performed utilizing dose reductiontechniques. Total DLP 101 COMPARISON: 04/25/2018 FINDINGS: LUNGS/PLEURA: Central airways are patent. No new or suspiciouspulmonary nodules.. No pleural effusion or pneumothorax. MEDIASTINUM: Thyroid gland is unremarkable. No mediastinal or hilar lymphadenopathy. Cardiac chambers are normal in size. No pericardialeffusion. Severe coronary artery calcifications Esophagus is normal. CHEST WALL: No axillary lymphadenopathy or superficial hematoma. UPPER ABDOMEN:The visualized portions of the upper abdomen areunremarkable. BONES: Bones are normal for age. IMPRESSION: No new or suspicious pulmonary nodules. Lung RADS 1-negative.Recommend continued screening with low-dose chest CT in 12 months. Dictating Physician: ALVIN RAMOS MD Electronically Signed by: ALVIN RAMOS MD Dic Date/Time: 12/29/23 1636 Sign date/Time: 12/29/23 1658 Berlin Rhodes MD IMG CT PROCEDURES Final Result * Depression Screening (09/30/2023) [facility] Depression Screening abstracted Historical Rosa CALDERON HEALTH MAINTENANCE Final Result * Colonoscopy (11/22/2022) [facility] Colonoscopy no interpretation , abstracted Anatomical Region Laterality Modality Other Anya Lee MD HEALTH MAINTENANCE Final Result * Hepatitis C Screening (11/21/2015) [facility] Hepatitis C Screening abstracted Historical Rosa CALDERON HE[facility] MAINTENANCE Final Result from Last 3 Months or Most Recently Relevant to Health Maintenance Insurance [employer] [place] [employer] Consultant Relationship Specialty Start Date End Date Cesar Crowley PA [address] [place] [address] PCP - General Internal Medicine 10/01/20
== END 2024-12-25 12:57 | disposition home or self-care (01) ==
LOC: HO.HUSH 11:34
PROVIDERS: PCP Physician Assistant Medical; Visit Provider Urology
DX: N40.1 Benign prostatic hyperplasia with lower urinary tract symptoms (principal); N13.8 Other obstructive and reflux uropathy; E11.69 Type 2 diabetes mellitus with other specified complication; N52.1 Erectile dysfunction due to diseases classified elsewhere
CPT/HCPCS: 99213; G2211

== ENCOUNTER → 2024-12-25 11:32 | Outpatient (BNVA) | payer MEDICARE, OTHER, SELFPAY | PROVIDERS: PCP Physician Assistant Medical; Visit Provider Urology ==